=== PATIENT | female | born 1985 | race Caucasian/White ===

== ENCOUNTER 2021-03-13 17:57 | Emergency (ER) | payer BC, SELFPAY ==
--- NOTE | 2021-03-13 18:02 | ED.URI ---
HPI - URI/Sore Throat General Chief Complaint: Upper Respiratory Infection Stated Complaint: congestion/cough/runny nose Time Seen by Provider: 03/13/21 18:02 Source: patient and RN notes reviewed Mode of arrival: ambulatory Limitations: no limitations History of Present Illness HPI Narrative: Scooby is a 35-year-old female patient who ambulated into the [facility] today. Patient states on , 03/12/2021 she received her Covid shot. Patient states on 05/01 she had nasal congestion and just generally not feeling well. Patient went ahead and got her booster because she was afebrile. Last night today she has felt tired, feels like she had a fever, nasal stuffiness congestion and cough. Patient has started Mucinex DM at home took 1 dose today. Patient had a negative rapid Covid test this morning. A PCR was also sent. The patient works at a [employer] so does testing biweekly MD elicited complaint: cough and nasal congestion Related Data Allergies Allergy/AdvReac Type Severity Reaction Status Date / Time Sulfa (Sulfonamide Allergy Unknown Unknown Verified 03/13/21 18:04 Antibiotics) Review of Systems Review of Systems: CONSTITUTIONAL: Denies body aches, fever, chills, or sweats. EYES: Denies visual changes, redness, or discharge. ENT: + rhinorrhea,+ congestion, sore throat, or otalgia. CARDIOVASCULAR: Denies chest pain, palpitations, or edema. RESPIRATORY: + cough or dyspnea. GASTROINTESTINAL: Denies abdominal pain, nausea, vomiting, or diarrhea. GENITOURINARY: Denies dysuria or hematuria. SKIN: Denies rash, itching, or wounds. MUSCULOSKELETAL: Denies back pain, joint pain, or myalgia. NEUROLOGIC: Denies headache, numbness, tingling, or weakness. PSYCH: Denies depression or anxiety. All systems reviewed & are unremarkable except as noted in HPI and below PMFSH Family History Family History Father Family history of mental disorder Hypertension Family history of arthritis Mother Family history of migraine headaches Family history of arthritis Family history of colonic diverticulitis Sibling Asthma Social History Social History Alcohol intake: current Comments At time of signature, I have reviewed and agree with nursing past medical, surgical, social and family history unless otherwise noted. Please see nursing chart for further information. There is no relevant family history pertinent to the presenting complaint Exam Narrative: GENERAL: Well-appearing, well-nourished, and in no acute distress. HEAD: Normocephalic, atraumatic. EYES: EOMI. No redness or drainage. Conjunctivae normal. ENT: Mucous membranes pink and moist. Nasal membranes are erythematous with clear drainage. Bilateral tympanic membranes are dull with moderate amount of fluid and no erythema noted. Posterior pharynx is erythemic with moderate amount of postnasal drainage, no exudate noted . Uvula midline. NECK: Normal AROM. Supple. No lymphadenopathy. CHEST: No respiratory distress. Clear to auscultation. HEART: Regular rate and rhythm. No murmur appreciated. Normal peripheral pulses. ABDOMEN: Soft, nontender, nondistended, normal active bowel sounds. MUSCULOSKELETAL: No bony tenderness. EXTREMITIES: Normal range of motion. No edema. SKIN: Warm, dry, no rash. Capillary refill normal. Normal skin turgor. NEURO: No focal deficits. Alert and oriented x3. Gait steady. PSYCH: Normal affect. No signs of depression or anxiety. Course Course Emergency Course: Patient was evaluated and examined. Patient had a rapid Covid test this morning that was negative. Patient had a PCR sent out as well. Patient is taking Mucinex DM at home. Patient is afebrile on exam. Patient appears to be minimally dehydrated. Patient will be encouraged to increase fluids. Take [id number] cold medicines for symptoms. Vital Sig
[2021-03-13 18:04] VITALS: BP 126/76; PULSE 112; RESP 18; TEMP 37.1; O2SAT 99
== END 2021-03-13 18:28 | disposition home or self-care (01) ==
PROVIDERS: Emergency Provider Nurse Practitioner Family; PCP Family Medicine
DX: J06.9 Acute upper respiratory infection, unspecified (principal)
CPT/HCPCS: 99213; G0463

== ENCOUNTER 2021-08-27 14:46 | Emergency (ER) | payer OTHER, SELFPAY ==
[2021-08-27] VITALS (7 sets, daily range): BP systolic 114–127; BP diastolic 63–84; PULSE 73–105; RESP 16–18; TEMP 36.6–36.8; O2SAT 98–100
--- NOTE | ~2021-08-27 | XR_ITS ---
EXAMINATION: XR chest 2V 08/27/2021 15:04 INDICATION: Dizziness. PROCEDURE: 2 view chest COMPARISON: 06/02/2009 FINDINGS: The lungs are clear. The cardiomediastinal silhouette is within normal limits. There are no pleural effusions. There is no pneumothorax suspected. IMPRESSION: 1: NO ACUTE CARDIOPULMONARY DISEASE. Reviewed, dictated and finalized at location B.
--- NOTE | 2021-08-27 14:49 | ECG_ITS ---
Measurements Intervals [place] Rate: 95 P: 69 MO: 125 QRS: 66 QRSD: 86 T: 43 QT: 359 QTc: 453 Interpretive Statements SINUS RHYTHM WITH SINUS ARRHYTHMIA BASELINE ARTIFACT- I, V4, V6 NORMAL ECG Electronically Signed On 08-27-2021 15:45:01 CDT by Smooth Echols D.O.
[2021-08-27 15:03] LABS: Basophils Absolute Auto 0.1 K/mm3 (0.0-0.1); Basophils Percent Auto 0.4 % (0.2-1.2); Eosinophils Absolute Auto 0.2 K/mm3 (0-0.3); Eosinophils Percent Auto 1.5 % (0-4.4); Hematocrit 40.9 % (37.0-47.0); Hemoglobin 13.4 g/dL (12.0-15.0); Immature Granulocyte Absolute 0.04 K/mm3 (0.00-0.031); Immature Granulocyte Percent A 0.3 % (0-0.5); Lymphocytes Absolute Auto 4.99 K/mm3 (0.9-3.2); Lymphocytes Percent Auto 36.9 % (18.3-44.2); Mean Corpuscular HGB Conc 32.8 g/dl (32-36); Mean Corpuscular Volume 91.7 fl (80-100); Mean Platelet Volume 9.5 fl (7.4-10.4); Monocytes Absolute Auto 0.8 K/mm3 (0.1-0.6); Monocytes Percent Auto 5.9 % (2.6-8.5); Neutrophils Absolute Auto 7.4 K/mm3 (1.3-6.7); Platelet Count Result 312 k/mm3 (150-375); Red Blood Count 4.46 M/mm3 (4.2-5.4); Red Cell Distribution Width 13.2 % (11.5-14.5); White Blood Count 13.5 K/mm3 (4.5-10.0)
[2021-08-27 15:12] LABS: Alanine Aminotransferase 28 U/L (6-35); Albumin Level 4.9 g/dL (3.5-5.1); Alkaline Phosphatase 107 U/L (38-126); Anion Gap 9 mmol/L (8-16); Aspartate Amino Transferase 31 U/L (14-36); Bilirubin,Total 0.3 mg/dL (0.2-1.3); Blood Urea Nitrogen 12 mg/dL (7-17); Calcium 9.3 mg/dL (8.4-10.2); Carbon Dioxide 24 mmol/L (22-30); Chloride 106 mmol/L (98-107); Estimated Glomerular Filt Rate > 60; Glucose 97 mg/dL (65-110); Potassium 3.5 mmol/L (3.4-5.0); Sodium 139 mmol/L (137-145)
[2021-08-27] MEDS: SODIUM CHLORIDE 0.9% IV 1,000 ML 999 ML IV CONT (15:22)
[2021-08-27] MEDS: MECLIZINE HCL 25 MG TABLET PO (15:22)
--- NOTE | 2021-08-27 15:23 | ED.DIZZY ---
HPI - Dizziness General Chief Complaint: Dizziness Stated Complaint: dizzy Time Seen by Provider: 08/27/21 15:00 Source: patient History of Present Illness HPI Narrative: Patient presents with dizziness. Reports she was walking out to check her mail when she had sudden onset dizziness described a sensation of she is going to pass out. She also had a burning sensation in her chest and tingling in her fingers. The symptoms have subsequently resolved and she now describes a sensation of feeling off balance and generalized weakness. She not currently have any chest pain or breath denies any recent fevers, cough, congestion. Denies any major changes with her appetite she denies any urinary symptoms or changes in bowel movements. Denies any nausea vomiting or diaphoresis. She denies any significant history of cardiac disease such as sudden cardiac and 50s or youngers. Denies any recent hospitalizations or surgeries or prior history of blood clots. Related Data Allergies Allergy/AdvReac Type Severity Reaction Status Date / Time Sulfa (Sulfonamide Allergy Unknown Unknown Verified 04/06/21 13:32 Antibiotics) Review of Systems Review of Systems: CONSTITUTIONAL: Denies fever, chills, or sweats. EYES: Denies visual changes, redness, or discharge. ENT: Denies rhinorrhea, congestion, sore throat, or otalgia. CARDIOVASCULAR: Denies current chest pain, palpitations, or edema. RESPIRATORY: Denies cough or dyspnea. GASTROINTESTINAL: Denies abdominal pain, nausea, vomiting, or diarrhea. GENITOURINARY: Denies dysuria or hematuria. SKIN: Denies rash or itching. MUSCULOSKELETAL: Denies back pain, joint pain, or myalgia. NEUROLOGIC: Denies headache, current numbness. PSYCHIATRIC: Denies anxiety or depression. All systems reviewed & are unremarkable except as noted in HPI and below PMFSH Family History Family History Father Family history of mental disorder Hypertension Family history of arthritis Mother Family history of migraine headaches Family history of arthritis Family history of colonic diverticulitis Sibling Asthma Social History Social History Alcohol intake: current Exam Narrative: GENERAL: Well-appearing, well-nourished, and in no acute distress. HEAD: Normocephalic, atraumatic. EYES: PERRLA and EOMI. ENT: Nares clear, no rhinorrhea or epistaxis. Mucous membranes moist. NECK: Supple. No masses. No JVD CHEST: Clear to auscultation. No respiratory distress. No wheezes rales or rhonchi HEART: Regular rate and rhythm. No murmur heard. Normal peripheral pulses. ABDOMEN: Soft, nontender, nondistended, normal active bowel sounds. EXTREMITIES: Normal range of motion. No edema. SKIN: Warm, dry, no rash. NEURO: Cranial nerves II through XII are intact patient is 5 out of 5 strength in all extremities sensation intact light touch in all extremities no dysdiadochokinesia no dysmetria with [id number] alert and oriented x3. PSYCH: Normal mood and affect. Course Reevaluation(s) Reevaluation #1: Patient reports feeling much improved and has resolution of her symptoms results and plan reviewed with patient. Patient is comfortable outpatient plan. Date: 08/27/21 Time: 16:27 Vital Signs Vital signs: Vital Signs Temperature 36.6 C 08/27/21 14:50 Pulse Rate 105 H 08/27/21 14:50 Respiratory Rate 16 08/27/21 14:50 Blood Pressure 127/84 08/27/21 14:50 Pulse Oximetry 98 08/27/21 14:50 Temperature 36.8 C 08/27/21 16:49 Pulse Rate 73 08/27/21 16:15 Respiratory Rate 17 08/27/21 16:15 Blood Pressure 122/68 08/27/21 16:00 Pulse Oximetry 100 08/27/21 16:15 MDM - Dizziness MDM Narrative Medical decision making narrative: H&P as above, vss, pt looks clinically well, exam without focal neurological deficits, labs with mild leukocytosis otherwise clinically unremarkable, img withou
[2021-08-27 15:32] LABS: Appearance Urine Clear (Clear); Bilirubin Urine Negative (Negative); Glucose Urine UA Negative (Negative); Ketones Urine Negative (Negative); Leukocyte Esterase Ur Negative LEU/UL (Negative); Nitrate Urine Negative (Negative); Protein Urine Negative (Negative); Specific Grav Ur 1.015 (1.001-1.035); Urobilinogen Urine 0.2 mg/dL (<2.0)
[2021-08-27 15:33] LABS: Add Urine Microscopic? YES; Blood Urine Trace-Intact (Negative); Color Urine Light Yellow (Yellow)
[2021-08-27 15:42] LABS: Bacteria Urine Trace /hpf; RBC Urine 0-2 /hpf (0-2); WBC Urine 0-3 /hpf
[2021-08-27 15:46] LABS: D Dimer < 0.27 ug/mL (<0.48)
== END 2021-08-27 16:52 | disposition home or self-care (01) ==
PROVIDERS: Emergency Medicine; Emergency Provider Emergency Medicine; PCP Family Medicine
DX: R42 Dizziness and giddiness (principal)
CPT/HCPCS: 36415; 71046; 80053; 81001; 85025; 85380; 93005; 96360; 99283; A9270; J7030

== ENCOUNTER 2022-05-24 10:00 | Outpatient (CLI) | payer OTHER, SELFPAY ==
[2022-05-24 10:19] LABS: Kit Draw Collected
== END 2022-05-24 10:01 | disposition home or self-care (01) ==
LOC: ANHGOSHLAB 10:02
PROVIDERS: PCP Family Medicine; Visit Provider Physician Assistant
DX: R53.83 Other fatigue (principal); D72.829 Elevated white blood cell count, unspecified; E66.9 Obesity, unspecified
CPT/HCPCS: 36415

== ENCOUNTER 2023-07-11 16:11 | Outpatient (CLI) | payer SELFPAY ==
--- NOTE | ~2023-07-11 | XR_ITS ---
Clinical Indication: Cough PA and lateral views of the chest: Comparison: None Findings: The lungs are clear, without evidence of focal consolidation or pleural effusion. Cardiome diastinal silhouette is within normal limits. Bones and soft tissues are unremarkable. Impression: Normal chest. Reviewed, dictated and finalized at location . Impression: Normal chest.
== END 2023-07-11 16:12 ==
PROVIDERS: PCP Family Medicine; Visit Provider Nurse Practitioner Family
DX: R05.9 Cough, unspecified (principal)
CPT/HCPCS: 71046

== ENCOUNTER 2024-03-16 15:57 | Outpatient (CLI) | payer OTHER, SELFPAY ==
[2024-03-16 19:19] LABS: Alanine Aminotransferase 18 U/L (6-35); Albumin Level 4.4 g/dL (3.5-5.1); Alkaline Phosphatase 72 U/L (38-126); Amylase 63 U/L (30-110); Anion Gap 5 mmol/L (4-12); Aspartate Amino Transferase 34 U/L (14-36); Bilirubin,Total 0.4 mg/dL (0.2-1.3); Blood Urea Nitrogen 14 mg/dL (7-17); Calcium 9.4 mg/dL (8.4-10.2); Carbon Dioxide 30 mmol/L (22-30); Chloride 103 mmol/L (98-107); Estimated Glomerular Filt Rate > 60; Glucose 79 mg/dL (65-110); Lipase 75 U/L (23-300); Potassium 4.4 mmol/L (3.4-5.0); Sodium 138 mmol/L (137-145)
== END 2024-03-16 15:58 | disposition home or self-care (01) ==
LOC: ANHGOSHLAB 15:58
PROVIDERS: PCP Family Medicine; Visit Provider Nurse Practitioner Family
DX: R10.9 Unspecified abdominal pain (principal)
CPT/HCPCS: 36415; 80053; 82150; 83690

== ENCOUNTER 2024-03-19 12:47 | Outpatient (CLI) | payer OTHER, SELFPAY ==
--- NOTE | ~2024-03-19 | CT_ITS ---
EXAMINATION: CT abdomen pelvis w con DATE: 03/19/2024 13:20 INDICATION: Unspecified abdominal pain TECHNIQUE: Computed tomography (CT) of the abdomen and pelvis was performed with 100 mL Omnipaque-350 intravenous contrast. Automated exposure control and iterative reconstruction technique were employe d. The dose-length product was 623.63 mGy-cm. COMPARISON: None FINDINGS: Lung bases are clear. Heart size is normal. No pericardial or pleural effusion. Liver, gallbladder, s pleen, pancreas, bilateral adrenal glands and kidneys are normal. Bladder, retroverted uterus and rig ht adnexa are unremarkable. 1.9 cm peripherally enhancing likely corpus luteum cyst in the left ovary . Bowels are unremarkable with no wall thickening or obstruction. The previously inflamed appendix is no longer visualized suggesting interval appendectomy. No free intraperitoneal gas or fluid. No path ologically enlarged abdominal or pelvic lymphadenopathy. Chronic mild anterior wedging at a few level s in the lower thoracic spine with mild to moderate spondylosis. IMPRESSION: 1. No acute intra-abdominal/pelvic process. Reviewed, dictated and finalized at location A. [employer] WORKER
== END 2024-03-19 12:48 | disposition home or self-care (01) ==
PROVIDERS: PCP Family Medicine; Visit Provider Nurse Practitioner Family
DX: R10.9 Unspecified abdominal pain (principal)
CPT/HCPCS: 74177; Q9967

== ENCOUNTER 2024-05-27 17:45 | Emergency (ER) | payer OTHER, SELFPAY ==
[2024-05-27 18:10] VITALS: BP 120/76; PULSE 79; RESP 20; TEMP 36.9; O2SAT 100
[2024-05-27 21:12] LABS: Add Urine Microscopic? YES; Appearance Urine Clear (Clear); Bacteria Urine None Seen /hpf; Bilirubin Urine Negative (Negative); Blood Urine Negative (Negative); Color Urine Yellow (Yellow); Glucose Urine UA Negative (Negative); Ketones Urine Negative (Negative); Leukocyte Esterase Ur Trace LEU/UL (Negative); Nitrate Urine Negative (Negative); Non Pathogenic Casts 0-2; Protein Urine Negative (Negative); RBC Urine 0-2 /hpf (0-2); Specific Grav Ur 1.004 (1.001-1.035); Squamous Epithelial Cell Urine Occasional /hpf (Few); Urobilinogen Urine 0.2 mg/dL (<2.0); WBC Urine 0-5 /hpf (0-3); pH Urine 6.5 (5.0-9.0)
[2024-05-27 21:37] LABS: Basophils Percent Auto 0.3 % (0.2-1.2); Eosinophils Absolute Auto 0.3 K/mm3 (0-0.3); Eosinophils Percent Auto 3.5 % (0-4.4); Hematocrit 40.9 % (37.0-47.0); Hemoglobin 13.7 g/dL (12.0-15.0); Immature Granulocyte Absolute 0.01 K/mm3 (0.00-0.031); Immature Granulocyte Percent A 0.1 % (0-0.5); Lymphocytes Absolute Auto 2.31 K/mm3 (0.9-3.2); Lymphocytes Percent Auto 31.3 % (18.3-44.2); Mean Corpuscular HGB Conc 33.5 g/dl (32-36); Mean Corpuscular Hemoglobin 29.4 pg (26-34); Mean Corpuscular Volume 87.8 fl (80-100); Mean Platelet Volume 9.4 fl (7.4-10.4); Monocytes Absolute Auto 0.5 K/mm3 (0.1-0.6); Monocytes Percent Auto 6.2 % (2.6-8.5); Neutrophils Absolute Auto 4.3 K/mm3 (1.3-6.7); Neutrophils Percent Auto 58.6 % (45.5-73.1); Platelet Count Result 270 k/mm3 (150-375); Red Blood Count 4.66 M/mm3 (4.2-5.4); Red Cell Distribution Width 13.4 % (11.5-14.5); White Blood Count 7.4 K/mm3 (4.5-10.0)
[2024-05-27 21:42] LABS: Influenza A QL RT-PCR Negative (Negative); Influenza B QL RT-PCR Negative (Negative); RSV RNA, RT-PCR Negative (Negative); SARS-CoV-2 RNA PCR Negative (Negative)
[2024-05-27] MEDS: SODIUM CHLORIDE 0.9% IV 2,000 ML 999 ML IV CONT (21:49)
--- NOTE | 2024-05-27 21:56 | ED_ITS ---
HPI - General Adult General Chief complaint: Extremity Problem,Nontraumatic Stated complaint: bilateral leg weakness Time Seen by Provider: 05/27/24 19:46 History of Present Illness HPI narrative: This is a 39-year-old female presenting the ED with chief complaint of extremity weakness. Patient has had flu-like symptoms for the last 3 3 days. These fevers body aches nausea vomiting and diarrhea. She feels dehydrated not have been eating and drinking very much. She says that all of her limbs feel heavy but feels like her right leg is slightly heavier than the others. She is not having any difficulty walking or any weakness. No urinary symptoms or loss of bowel continence. No history of IV drug abuse, lower back pain, trauma or known cancer Related Data Allergies Allergy/AdvReac Type Severity Reaction Status Date / Time Sulfa (Sulfonamide Allergy Unknown Unknown Verified 05/27/24 17:46 Antibiotics) [facility] Family History Family History Father Family history of mental disorder Hypertension Family history of arthritis Mother Family history of migraine headaches Family history of arthritis Family history of colonic diverticulitis Sibling Asthma Social History Social History Smoking status: Never smoker Alcohol intake: current Alcohol use details: occasionally Substance use: never Substance use type: does not use Do You Feel Safe in your Home?: Yes Lack of Transportation: No Lack of Food: Never True Current Housing: I Have Housing Concerned About Future Housing: No Difficulty Paying Gas/Electric Bills: No Difficulty Paying for Meds: No Currently Unemployed: No Education: Master's Degree or Higher Difficulty w/ Childcare or Family Care: No Living arrangements: with family Additional living arrangements comments: , 3 kids and 3 dogs. Occupation/Education: occupation Exam 2 Narrative: APPEARANCE: No apparent distress. Head: atraumatic. EYES: EOMI, NOSE: Atraumatic NECK: Trachea midline RESPIRATORY: No increased rate of breathing CARDIOVASCULAR: RRR, pulses are strong, no swelling lower extremity calf circumference equal. ABDOMINAL: Non-distended MUSCULOSKELETAl: Patient is able to ambulate with steady gait, is warm pulses intact compartments are soft NEURO: Alert. Cranial nerves 2-12 grossly intact. Sensation light touch, motor function cerebellar function intact for 4 extremities. Gait exam was normal. SKIN:: Warm, dry. Normal color PSYCHIATRIC: Normal affect Course Vital Signs Vital signs: Vital Signs Temperature 98.4 F 05/27/24 18:10 Pulse Rate 79 05/27/24 18:10 Respiratory Rate 20 05/27/24 18:10 Blood Pressure 120/76 05/27/24 18:10 Pulse Oximetry 100 05/27/24 18:10 Oxygen Delivery Room Air 05/27/24 18:10 Temperature 98.4 F 05/27/24 18:10 Pulse Rate 79 05/27/24 18:10 Respiratory Rate 20 05/27/24 18:10 Blood Pressure 120/76 05/27/24 18:10 Pulse Oximetry 100 05/27/24 18:10 Oxygen Delivery Room Air 05/27/24 18:10 Medical Decision Making MDM Narrative Medical decision making narrative: -Course: 39-year-old female presenting with 3 days of flu-like symptoms and now presenting with heaviness in all 4 limbs although she reports it to be slightly greater in the right lower extremity. Her neurologic exam is normal. Her physical exam lower extremity does not reveal any sensory or motor deficits. She is able to walk with a normal gait. No other red flags on history and physical. No concern for CVA. She recieved fluids, Toradol Tylenol Zofran says that she is feeling better. Her workup including laboratory studies, electrolytes viral swabs was negative. Results were discussed patient and this time we will treat her viral illness and left that resolved. Then follow-up primary care physician and determine if further workup is necessary. Patient will be discharged to follow-up with her primary care physician for further management. Different diagnosis: Dehydration, MS,guillan barre, viral syndrome, peripheral neuropathy UTI electrolyte abnormality Vital Signs Vital Signs: Vital Signs Temperature 98.4 F 05/27/24 18:10 Pulse Rate 79 05/27/24 18:10 Respiratory Rate 20 05/27/24 18:10 Blood Pressure 120/76 05/27/24 18:10 Pulse Oximetry 100 05/27/24 18:10 Oxygen Delivery Room Air 05/27/24 18:10 Temperature 98.4 F 05/27/24 18:10 Pulse Rate 79 05/27/24 18:10 Respiratory Rate 20 05/27/24 18:10 Blood Pressure 120/76 05/27/24 18:10 Pulse Oximetry 100 05/27/24 18:10 Oxygen Delivery Room Air 05/27/24 18:10 Lab Data 05/27/24 21:30 05/27/24 21:30 Labs: Lab Results 05/27/24 05/27/24 Range/Units 20:55 21:30 WBC 7.4 (4.5-10.0) K/mm3 RBC 4.66 (4.2-5.4) M/mm3 Hgb 13.7 (12.0-15.0) g/dL Hct 40.9 (37.0-47.0) % MCV 87.8 (80-100) fl MCH 29.4 (26-34) pg MCHC 33.5 (32-36) g/dl RDW 13.4 (11.5-14.5) % Plt Count 270 (150-375) k/mm3 MPV 9.4 (7.4-10.4) fl Immature Gran % (Auto) 0.1 (0-0.5) % Neut % (Auto) 58.6 (45.5-73.1) % Lymph % (Auto) 31.3 (18.3-44.2) % Weber % (Auto) 6.2 (2.6-8.5) % Eos % (Auto) 3.5 (0-4.4) % Baso % (Auto) 0.3 (0.2-1.2) % Lymph # (Auto) 2.31 (0.9-3.2) K/mm3 Weber # (Auto) 0.5 (0.1-0.6) K/mm3 Eos # (Auto) 0.3 (0-0.3) K/mm3 Baso # (Auto) 0.0 (0.0-0.1) K/mm3 Abs Immat Gran (auto) 0.01 (0.00-0.031) K/mm3 Absolute Neuts (auto) 4.3 (1.3-6.7) K/mm3 Absolute Nucleated RBC 0.000 (0.0-0.012) K/mm3 Nucleated RBC % 0.0 (0.0-0.2) % Sodium 138 (137-145) mmol/L Potassium 3.7 (3.4-5.0) mmol/L Chloride 103 (98-107) mmol/L Carbon Dioxide 25 (22-30) mmol/L Anion Gap 10 (4-12) mmol/L BUN 11 (7-17) mg/dL Creatinine 0.64 L (0.7-1.0) mg/dL Estim Creat Clear Calc Not Reportable Estimated GFR > 60 (59 - ) Glucose 83 (65-110) mg/dL Calcium 9.1 (8.4-10.2) mg/dL Phosphorus 3.7 (2.5-4.5) mg/dL Magnesium 1.9 (1.6-2.3) mg/dL Total Bilirubin 0.4 (0.2-1.3) mg/dL AST 22 (14-36) U/L ALT 21 (6-35) U/L Alkaline Phosphatase 71 (38-126) U/L Total Creatine Kinase 55 (30-135) U/L Total Protein 8.0 (6.3-8.2) g/dL Albumin 4.4 (3.5-5.1) g/dL Urine Color Yellow (Yellow) Urine Appearance Clear (Clear) Urine pH 6.5 (5.0-9.0) Ur Specific [place] 1.004 (1.001-1.035) Urine Protein Negative (Negative) mg/dL Urine Glucose (UA) Negative (Negative) mg/dL Urine Ketones Negative (Negative) mg/dL Ur Blood (Man) Negative (Negative) Urine Nitrate Negative (Negative) Urine Bilirubin Negative (Negative) Urine Urobilinogen 0.2 (<2.0) mg/dL Leukocyte Esterase Rfl Trace H (Negative) IRENE/UL Urine RBC 0-2 (0-2) /hpf Urine WBC 0-5 (0-3) /hpf Ur Squamous Epith Cells Occasional (Few) /hpf Urine Bacteria None seen /hpf Urine Casts 0-2 Urine Test Negative Influenza A (RT-PCR) Negative (Negative) Influenza B (RT-PCR) Negative (Negative) RSV (RT-PCR) Negative (Negative) SARS-CoV-2 RNA (RT-PCR) Negative (Negative) Discharge Plan Discharge Clinical Impression: Viral illness, Acute dehydration Patient Disposition: Home, Self-Care Condition: Stable Instructions: Antibiotic Form, Viral Syndrome (ED) Additional Instructions: Please drink plenty of fluids and use Motrin Tylenol for flu symptoms. Use Zofran for nausea. If you develop worsening heaviness in her legs or any new symptoms please return the ED immediately Patient Language: Swedish Prescriptions: New ibuprofen 800 mg tablet 800 mg PO TID PRN (Reason: pain) 7 Days Qty: 21 0RF acetaminophen 500 mg tablet 1,000 mg PO TID PRN (Reason: siddhartha) 7 Days Qty: 42 0RF ondansetron 4 mg tablet,disintegrating 4 mg PO Q8H PRN (Reason: nausea and vomiting) Qty: 30 0RF No Action Ozempic 0.25 mg or 0.5 mg (2 mg/3 mL) pen injector 0.5 mg subcut WEEKLY Qty: 3 0RF valacyclovir [Valtrex] 500 mg tablet See Rx Instructions PO Q12H PRN (Reason: acute outbreak) Qty: 30 0RF Rx Instructions: 500 mg PO q12h x3 days; Start: FELICIA w/in 24h of sx onset. metformin 500 mg tablet extended release 24 hr 500 mg PO BID Qty: 180 2RF fluoxetine 10 mg tablet 10 mg PO DAILY Qty: 30 5RF meclizine 25 mg tablet 25 mg PO TID PRN (Reason: motion sickness) Qty: 30 1RF lorazepam 0.5 mg tablet 0.5 mg PO TID PRN (Reason: anxiety) Qty: 40 2RF Follow-up/Referrals: Gasper Rincon MD [Primary Care Provider] -
[2024-05-27 21:58] LABS: Alanine Aminotransferase 21 U/L (6-35); Albumin Level 4.4 g/dL (3.5-5.1); Alkaline Phosphatase 71 U/L (38-126); Anion Gap 10 mmol/L (4-12); Aspartate Amino Transferase 22 U/L (14-36); Bilirubin,Total 0.4 mg/dL (0.2-1.3); Blood Urea Nitrogen 11 mg/dL (7-17); Calcium 9.1 mg/dL (8.4-10.2); Carbon Dioxide 25 mmol/L (22-30); Chloride 103 mmol/L (98-107); Creatine Kinase 55 U/L (30-135); Estimated Glomerular Filt Rate > 60; Glucose 83 mg/dL (65-110); Magnesium 1.9 mg/dL (1.6-2.3); Phosphorus 3.7 mg/dL (2.5-4.5); Potassium 3.7 mmol/L (3.4-5.0); Sodium 138 mmol/L (137-145)
[2024-05-27] MEDS: ONDANSETRON INJ 4 MG/2 ML VIAL IV PUSH (21:58)
[2024-05-27 22:00] VITALS: BP 117/73; PULSE 72; RESP 16; O2SAT 99
[2024-05-27] MEDS: KETOROLAC 15 MG/ML VIAL (*BKC) IV PUSH (22:00)
[2024-05-27 22:01] LABS: Pregnancy On Board Control Positive; Urine Pregnancy Test Negative
[2024-05-27] MEDS: ACETAMINOPHEN 500 MG TABLET 1000 MG PO (22:01)
[2024-05-28 00:19] VITALS: BP 120/77; PULSE 73; RESP 19; O2SAT 100
[2024-05-28 00:21] VITALS: BP 120/77; PULSE 73; RESP 19; O2SAT 100
[2024-05-28 13:36] LABS: BEDSIDEPREGUCG Negative (Negative)
== END 2024-05-28 00:23 | disposition home or self-care (01) ==
PROVIDERS: Emergency Provider Emergency Medicine; PCP Family Medicine
DX: B34.9 Viral infection, unspecified (principal); E86.0 Dehydration; Z20.822 Contact with and (suspected) exposure to COVID-19; Z79.85 Long-term (current) use of injectable non-insulin antidiabetic drugs; Z79.84 Long term (current) use of oral hypoglycemic drugs
CPT/HCPCS: 36415; 80053; 81001; 81025; 82550; 83735; 84100; 85025; 87637; 96361; 96374; 96375; 99284; A9270; J1885; J2405; J7030